=== PATIENT | female | born 1990 | race Caucasian/White ===

== ENCOUNTER 2020-03-10 04:21 | Emergency (ER) | payer MEDICAID ==
[~2020-03-10] VITALS: Ht 154.9 cm; Wt 79.4 kg
[2020-03-10] MEDS ORDERED: IV NS 0.9% 1,000 ML IV ONE (04:30)
--- NOTE | 2020-03-10 04:30 | NUR ---
BRUCE 81 FROM HOME FOR PT WAS FOUND ON THE FLOOR BY HER MOM. PT CURRENTLY ALERT, AWAKE AND OX4. RESPONSIVE TO QUESTIONS. DENYING LOOSING CONCIOUSNESS HOWEVER PER EMS "MOM SAID HAD A HARD TIME WAKING HER UP". PT W/ C/O MILD R SHOULDER PAIN 2-3/10 ALTHOUGH ABLE TO LIFT THE ARM. AHS A LAC 20G STABLISHED BY EMS AND RECEIVING IVF. PT WAS PLACED ON MONITOR,
[2020-03-10] MEDS ORDERED: ONDANSETRON HCL/PF 4 MG/2 ML VIAL ONE (04:32)
--- NOTE | 2020-03-10 04:33 | NUR ---
EMT AT BED SIDE FOR ECG
--- NOTE | 2020-03-10 04:35 | NUR ---
DOCUMENT REVIEWER AT BEDSIDE FOR LABS.
--- NOTE | 2020-03-10 04:35 | NUR ---
PLACED ON 1L NS AND GIVEN 4MG OF ZOFRAN.
[2020-03-10 04:45] LABS: BASOPHILS # (AUTO) 0.1 /CMM (0.0-0.2); BASOPHILS % (AUTO) 0.7 % (0.0-2.0); HEMATOCRIT 36 % (33-45); HEMOGLOBIN 11.8 g/dL (11.5-14.8); LYMPHOCYTES # (AUTO) 3.5 /CMM (0.8-4.8); LYMPHOCYTES % (AUTO) 38.7 % (20.0-44.0); MEAN CORPUSCULAR HGB CONC 33 g/dl (31.0-36.0); MEAN CORPUSCULAR VOLUME 94 fL (82-100); MONOCYTES # (AUTO) 0.8 /CMM (0.1-1.30); MONOCYTES % (AUTO) 8.7 % (2.0-12.0); NEUTROPHILS # (AUTO) 4.3 /CMM (1.8-8.9); NEUTROPHILS % (AUTO) 47.9 % (43.0-81.0); PLATELET COUNT (AUTO) 252 /CMM (150-450); RED BLOOD CELL COUNT(AUTO) 3.86 MIL/uL (4.0-5.2)
--- NOTE | 2020-03-10 04:54 | NUR ---
RADIOLOGY AT BEDSIDE
--- NOTE | 2020-03-10 04:59 | NUR ---
BROUGHT TO CT
[2020-03-10] MEDS ORDERED: ONDANSETRON HCL/PF 4 MG/2 ML VIAL IV ONE (05:00)
[2020-03-10 05:03] LABS: CALCIUM, SERUM 7.9 mg/dL (8.5-10.1); CREATININE 0.8 mg/dL (0.6-1.3); POTASSIUM 4.3 mmol/L (3.5-5.1)
--- NOTE | 2020-03-10 05:07 | NUR ---
PT BACK FROM RADIOLOGY. PENDING CT HEAD RESULT.
--- NOTE | 2020-03-10 05:13 | NUR ---
PT UNABLE TO PROVIDE URINE SAMPLE AT THIS TIME. MD CASANOVA
--- NOTE | 2020-03-10 05:37 | NUR ---
URINE COLLECTED AND SENT TO LAB
[2020-03-10 05:44] LABS: APPEARANCE,URINE Slightly Cloudy (CLEAR); BILIRUBIN,URINE Negative (NEGATIVE); BLOOD, URINE Negative Ery/uL (NEGATIVE); COLOR,URINE Yellow (YELLOW); KETONES,URINE Negative (NEGATIVE); LEUKOCYTE ESTERASE ,URINE Negative (NEGATIVE); NITRITE, URINE Negative (NEGATIVE); PROTEIN,URINE Negative (NEGATIVE); UGLUCOSE Negative (NEGATIVE); UROBILINOGEN,URINE 0.2 EU/dL (0.2)
[2020-03-10] MEDS ORDERED: IV NS 0.9% 500 ML BAG IV ONE (07:00)
--- NOTE | 2020-03-10 07:59 | NUR ---
PATIENT ABLE TO AMBULATE W STEADY GAIT AND NOT FEELING DIZZY, MADE MD AWARE
--- NOTE | 2020-03-10 08:43 | NUR ---
PATIENT PROVIDED NUMBER OF MOTHER: SYBIL [phone], NO ANSWER, LEFT VM
[2020-03-10] MEDS ORDERED: MECLIZINE HCL 12.5 MG TABLET PO ONE (10:30)
[2020-03-10] MEDS ORDERED: ACETAMINOPHEN 325 MG TABLET PO ONE (10:30)
[2020-03-10] MEDS ORDERED: MECLIZINE HCL 25 MG TABLET ONE (10:33)
[2020-03-10] MEDS ORDERED: ACETAMINOPHEN ES 500 MG TABLET ONE (10:33)
--- NOTE | 2020-03-10 10:47 | NUR ---
IV removed. Catheter intact and site benign. Pressure and 4x4 applied to site. No bleeding noted.
--- NOTE | 2020-03-10 11:02 | NUR ---
Patient discharged to home in stable condition. Assisted to waiting room while waiting for mushroom picker by family. Written and verbal after care instructions given. Patient verbalizes understanding of instruction.
[2020-03-10 11:17] VITALS: BP 98/71
== END 2020-03-10 11:02 | disposition home or self-care (01) ==
LOC: ER 04:21
DX: R55 Syncope and collapse (principal); R42 Dizziness and giddiness
CPT/HCPCS: 36415; 70450; 71045; 80048; 80305; 81001; 84703; 85025; 93005; 96361; 96374; 99285; J2405; J7030 ×2; J8597; 81000-TC